=== PATIENT | female | born 1955 | race Asian ===

== ENCOUNTER 2020-07-29 14:41 | Outpatient (CLI) | payer OTHER ==
[2020-07-29 15:19] LABS: PLATELET COUNT 300 K/uL (152-353)
[2020-07-29 15:49] LABS: POTASSIUM 3.4 mmol/L (3.6-5.2)
== END 2020-07-29 22:15 | disposition home or self-care (01) ==
LOC: LAB 14:41
PROVIDERS: ATTEND Nurse Practitioner Family
DX: I10 Essential (primary) hypertension (principal); M19.90 Unspecified osteoarthritis, unspecified site; R53.83 Other fatigue; E87.6 Hypokalemia; E11.9 Type 2 diabetes mellitus without complications; R53.81 Other malaise; M06.89 Other specified rheumatoid arthritis, multiple sites; D64.89 Other specified anemias; E55.9 Vitamin D deficiency, unspecified; E53.8 Deficiency of other specified B group vitamins
CPT/HCPCS: 80053; 80061; 82306; 82607; 83036; 84439; 84443; 85027; 85652; 86140